=== PATIENT | male | born 1955 | race Caucasian/White ===

== ENCOUNTER 2018-08-19 11:36 | Emergency (ER) | payer MEDICARE ==
[~2018-08-19] VITALS: Ht 177.8 cm; Wt 96.3 kg
[2018-08-19 11:49] VITALS: Ht 177.8 cm; Wt 96.3 kg
--- NOTE | 2018-08-19 12:40 | ERD ---
ER Documentation Chief Complaint Chief Complaint Facial pain HPI The patient is a 62-year-old male, presenting to the ER because of left facial pain with greenish nasal discharge for the last week weeks, worse for the last 3 days, had similar symptoms previously. He denies fever, chills, neck pain, chest pain, dyspnea, abdominal pain, vomiting, dysuria, diarrhea. He does not smoke nor drink Past medical history: Dyslipidemia Past surgical history: Back surgery, right knee arthroscopy ROS All systems reviewed and are negative except as per history of present illness. Medications Home Meds Active Scripts Loratadine/Pseudoephedrine* (Claritin-D* 12 Hr) 5-120 Mg Tab.er.12h, 1 TAB PO DAILY, #10 TAB.SA Prov:MATILDE MOSS MD 08/19/18 Amoxicillin* (Amoxicillin*) 500 Mg Cap, 500 MG PO TID for 10 Days, CAP Prov:MATILDE MOSS MD 08/19/18 Physical Exam Vitals Vital Signs Date Temp Pulse Resp B/P (MAP) Pulse Ox O2 O2 Flow FiO2 Time Delivery Rate 08/19/18 98.0 108 20 108/77 97 11:49 (87) Physical Exam Const: No acute distress. Head: Atraumatic. Eyes: Normal Conjunctiva. ENT: Normal External Ears, Nose and Mouth. Left frontal/maxillary sinus tenderness Neck: Full range of motion. No meningismus. Resp: Clear to auscultation bilaterally. Cardio: Regular rate and rhythm. Abd: Soft, non distended, normal bowel sounds, non tender. Skin: No petechiae or rashes. Back: No midline or flank tenderness. Ext: No cyanosis, or edema. Neur: Awake and alert. No focal deficit Psych: Normal Mood and Affect. Procedures/MDM MEDICAL MAKING DECISION: The patient is a 62-year-old male, presenting with acute sinusitis, is stable for outpatient follow-up The differential diagnoses considered include but are not limited to sinusitis, nasal polyps, nasopharyngeal carcinoma, cellulitis Departure Diagnosis: Primary Impression: Acute bacterial sinusitis Condition: Good Comments He was discharged with amoxicillin and Claritin D 24hr I discussed the findings with the patient. I advised the patient to follow-up with the primary physician in about 2-3 days, sooner if needed and return if any concern. Disclaimer: Inadvertent spelling and grammatical errors are likely due to EHR/dictation software use and do not reflect on the overall quality of patient care. Also, please note that the electronic time recorded on this note does not necessarily reflect the actual time of the patient encounter. MATILDE MOSS MD Aug 19, 2018 12:40
[2018-08-19] MEDS ORDERED: AMOX500C2 PO (12:47)
[2018-08-19] MEDS ORDERED: LORA1TAB54 PO (12:48)
[2018-08-19 13:07] VITALS: BP 126/95; PULSE 92; RESP 13
== END 2018-08-19 13:08 | disposition home or self-care (01) ==
LOC: E/R 11:36
DX: J01.90 Acute sinusitis, unspecified (principal)
CPT/HCPCS: 99283